=== PATIENT | female | born 1950 | race Hispanic/Latino ===

== ENCOUNTER 2022-04-22 21:52 | Inpatient (IN) | payer MEDICARE, OTHER ==
[~2022-04-22] VITALS: Ht 162.6 cm; Wt 82.1 kg
[2022-04-22] MEDS ORDERED: MECLIZINE HCL 12.5 MG TAB PO ONE (22:30)
[2022-04-22] MEDS ORDERED: ONDANSETRON HCL 4 MG ORAL DISINTEGRATING TAB PO ONE (22:30)
[2022-04-22] MEDS ORDERED: MECLIZINE HCL 12.5 MG TAB ONE (22:38)
[2022-04-22] MEDS ORDERED: ONDANSETRON HCL 4 MG ORAL DISINTEGRATING TAB ONE (22:39)
[2022-04-22 22:48] LABS: BASOPHILS % 0.3 % (0.0-1.0); EOSINOPHILS # (AUTO) 0.2 (0.0-0.4); HEMATOCRIT 39.2 % (34.2-44.1); HEMOGLOBIN 12.9 g/dL (12.0-16.0); LYMPHOCYTES # (AUTO) 1.7 (1.0-3.2); LYMPHOCYTES % 24.5 % (18.0-39.1); MEAN CORPUSCULAR HEMOGLOBIN 29.4 pg (28-32); MEAN CORPUSCULAR HGB CONC 32.9 g/dL (31-35); MEAN CORPUSCULAR VOLUME 89.3 fL (81-99); MONOCYTES # (AUTO) 0.7 (0.2-0.8); MONOCYTES % 9.4 % (4.4-11.3); NEUTROPHILS # (AUTO) 4.3 (2.1-6.9); NEUTROPHILS % 62.7 % (38.7-80.0); PLATELET COUNT 124 x10e3/uL (140-360); RED BLOOD COUNT 4.39 x10e6/uL (3.6-5.1); RED CELL DISTRIBUTION WIDTH 13.2 % (11.7-14.4)
[2022-04-22 23:00] LABS: INR 1.02; PARTIAL THROMBOPLASTIN TIME 34.2 seconds (23.8-35.5); PROTHROMBIN TIME 14.3 seconds (11.9-14.5)
[2022-04-22 23:08] LABS: ALBUMIN 3.4 g/dL (3.5-5.0); ALBUMIN/GLOBULIN RATIO 0.9 (0.8-2.0); CALCIUM 9.4 mg/dL (8.4-10.2); CREATININE, SERUM 1.58 mg/dL (0.57-1.11)
[2022-04-22 23:14] LABS: CREATINE KINASE MB 2.1 ng/mL (0-5.0)
[2022-04-23] VITALS (11 sets, daily range): BP systolic 131–161; BP diastolic 55–65
[2022-04-23] MEDS ORDERED: SODIUM CHLORIDE FLUSH 10 ML SYR INJ PRN (01:00)
[2022-04-23] MEDS ORDERED: POTASSIUM CHLORIDE 20 MEQ TAB CR PO STA ×2 (01:27→21:36)
[2022-04-23] MEDS ORDERED: HYDROCHLOROTHIA25 MG PO (02:46)
[2022-04-23] MEDS ORDERED: LOSARTAN PO (02:46)
[2022-04-23 08:09] LABS: CREATINE KINASE MB 1.6 ng/mL (0-5.0)
[2022-04-23] MEDS ORDERED: POTASSIUM CHLORIDE 10MEQ EA PO ONE (10:00)
[2022-04-23] MEDS ORDERED: LOSARTAN POTASSIUM 100 MG TAB PO ONE (10:15)
[2022-04-23] MEDS: SODIUM CHLORIDE 0.9% 1000ML 1,000 ML IV SCH ×2 (11:00→21:26)
[2022-04-23] MEDS ORDERED: MIDAZOLAM HCL 2 MG/2 ML VIAL ONE (17:04)
[2022-04-23] MEDS ORDERED: FENTANYL CITRATE/PF 100MCG/2 ML INJ ONE (17:04)
[2022-04-23] MEDS ORDERED: SODIUM CHLORIDE 0.9% 1000ML 2,000 ML ONE (17:05)
[2022-04-23] MEDS ORDERED: Vancomycin IV 1 GM VIAL ONE (17:05)
[2022-04-23] MEDS ORDERED: SODIUM CHLORIDE 0.9% 500ML 500 ML ONE (17:05)
[2022-04-23] MEDS ORDERED: GENTAMICIN SULFATE 40 MG/ML 2 ML VIAL ONE (17:05)
[2022-04-23] MEDS ORDERED: SODIUM CHLORIDE 0.9% 250ML 250 ML ONE (17:05)
[2022-04-23] MEDS ORDERED: LIDOCAINE HCL 1% LOCAL INJ 20 ML VIAL ONE (17:41)
[2022-04-23 20:18] LABS: CREATINE KINASE MB 1.5 ng/mL (0-5.0)
[2022-04-24 00:20] VITALS: BP 144/59
[2022-04-24 04:00] VITALS: BP 136/59
[2022-04-24 05:05] LABS: BASOPHILS % 0.4 % (0.0-1.0); EOSINOPHILS # (AUTO) 0.2 (0.0-0.4); HEMATOCRIT 38.1 % (34.2-44.1); HEMOGLOBIN 12.5 g/dL (12.0-16.0); LYMPHOCYTES # (AUTO) 1.5 (1.0-3.2); LYMPHOCYTES % 22.6 % (18.0-39.1); MEAN CORPUSCULAR HEMOGLOBIN 29.9 pg (28-32); MEAN CORPUSCULAR HGB CONC 32.8 g/dL (31-35); MEAN CORPUSCULAR VOLUME 91.1 fL (81-99); MONOCYTES # (AUTO) 0.8 (0.2-0.8); MONOCYTES % 11.4 % (4.4-11.3); NEUTROPHILS # (AUTO) 4.2 (2.1-6.9); NEUTROPHILS % 62.5 % (38.7-80.0); PLATELET COUNT 116 x10e3/uL (140-360); RED BLOOD COUNT 4.18 x10e6/uL (3.6-5.1); RED CELL DISTRIBUTION WIDTH 13.3 % (11.7-14.4)
[2022-04-24 05:35] LABS: ALBUMIN/GLOBULIN RATIO 0.9 (0.8-2.0); ANION GAP 13.8 mmol/L (8-16); CALCIUM 8.8 mg/dL (8.4-10.2); CREATININE, SERUM 1.36 mg/dL (0.57-1.11)
[2022-04-24 05:40] LABS: POTASSIUM 3.8 mmol/L (3.5-5.1)
[2022-04-24 05:45] LABS: MAGNESIUM 1.6 MG/DL (1.3-2.1); PHOSPHORUS 3.1 MG/DL (2.3-4.7)
[2022-04-24 07:59] VITALS: BP 157/73
[2022-04-24] MEDS: SODIUM CHLORIDE 0.9% 1000ML 1,000 ML IV SCH (08:16)
[2022-04-24] MEDS ORDERED: LOSARTAN POTASSIUM 100 MG TAB PO SCH (09:00)
[2022-04-24 09:39] VITALS: BP 157/73
[2022-04-24] MEDS ORDERED: K DUR10 MEQ PO (09:51)
[2022-04-24] MEDS ORDERED: DOXYCYCLINE MO100 M1 PO (09:52)
[2022-04-24] MEDS ORDERED: tylenol #3 PO (09:52)
[2022-04-24] MEDS ORDERED: SODIUM CHLORIDE 0.9% 1000ML 1,000 ML ONE (12:12)
== END 2022-04-24 10:38 | disposition home or self-care (01) | DRG 243 ==
LOC: ER 22:09 → ERHOLD 04-23 00:52 → MED/SURG2 04-23 02:10 → OBSVTOIN 04-23 09:26
PROVIDERS: ADMIT Internal Medicine; ATTEND Internal Medicine
PROC: 0JH606Z Insertion of Pacemaker, Dual Chamber into Chest Subcutaneous Tissue and Fascia, Open Approach (ICD-10-PCS; principal; 2022-04-23)
PROC: 02HK3JZ Insertion of Pacemaker Lead into Right Ventricle, Percutaneous Approach (ICD-10-PCS; 2022-04-23)
PROC: 02H63JZ Insertion of Pacemaker Lead into Right Atrium, Percutaneous Approach (ICD-10-PCS; 2022-04-23)
DX: I49.5 Sick sinus syndrome (principal); N17.9 Acute kidney failure, unspecified; R00.1 Bradycardia, unspecified; I10 Essential (primary) hypertension; Z85.3 Personal history of malignant neoplasm of breast; Z92.3 Personal history of irradiation; Z20.822 Contact with and (suspected) exposure to COVID-19; Z79.899 Other long term (current) drug therapy; E87.6 Hypokalemia; E66.9 Obesity, unspecified; Z68.31 Body mass index [BMI] 31.0-31.9, adult
CPT/HCPCS: 33208; 36415; 70450; 70544; 70547; 70551; 71045; 72100; 80053; 82550; 82553; 83735; 84100; 84443; 84484; 85025; 85610; 85730; 93005; 93306; 99152; 99153; J1580; J2001; J2250; J3010; J3370; J7030; J7040; J7050; Q0162

== ENCOUNTER 2022-04-27 21:38 | Emergency (ER) | payer MEDICARE ==
[~2022-04-27] VITALS: Ht 315 cm; Wt 82.1 kg
[~2022-04-27 21:38] MED LIST: DOXYCYCLINE MO100 M1 PO; HYDROCHLOROTHIA25 MG PO; K DUR10 MEQ PO; LOSARTAN PO; tylenol #3 PO
== END 2022-04-27 22:02 | disposition home or self-care (01) ==
LOC: ER 21:42
DX: R51.9 Headache, unspecified (principal); I10 Essential (primary) hypertension; R01.1 Cardiac murmur, unspecified; Z85.3 Personal history of malignant neoplasm of breast; Z95.810 Presence of automatic (implantable) cardiac defibrillator
CPT/HCPCS: 99282